=== PATIENT | male | born 1945 | race Caucasian/White ===

== ENCOUNTER → 2016-06-15 | Outpatient (CLI) | payer OTHER ==
--- NOTE | 2016-06-15 12:40 | NM ---
Nuclear Medicine Whole Body Bone Scan Indication: 70-year-old man with history of prostate adenocarcinoma. Increasing PSA. Possible metast asis to left acromion. Comparison: F-18 bone scan dated February 17, 2016 and whole body bone scan dated October 23, 2009. Technique: 21.3 mCi technetium 99m MDP were injected intravenously. Delayed images of the skeleton were obtained in anterior and posterior projections. Findings: Benign degenerative uptake in bilateral acromioclavicular joints. No scintigraphic evidence of bone metastasis to the left acromion. Small focus of increased uptake in the posterolateral right seventh rib, lateral left third rib, and anterior left fifth rib at the costochondral junction are all unchanged since February 2016. The left third rib uptake and left fifth costochondral uptake are new since October 2009. No new focus of abnormal uptake throughout the axial or appendicular skeleton since February 2016. Exp ected photopenia and minimal uptake around the right hip arthroplasty. Normal uptake throughout the g enitourinary tract. Impression: 1. Stable disease. Limited metastatic disease to the right 7th and left 3rd ribs and possibly left 5 th costochondral junction are unchanged since February 2016. 2. Doubt metastatic lesion in left acromion. Suspect this corresponds to degenerative uptake in the a cromioclavicular joint.
== END ==
LOC: FIMAGING 08:15
PROVIDERS: ATTEND Internal Medicine Hematology & Oncology
DX: C79.51 Secondary malignant neoplasm of bone (principal); C61 Malignant neoplasm of prostate
CPT/HCPCS: 78306; A9503

== ENCOUNTER → 2016-08-09 | Outpatient (CLI) | payer OTHER | LOC: FIMAGING 08:39 | DX: R97.20 Elevated prostate specific antigen [PSA] (principal); Z85.46 Personal history of malignant neoplasm of prostate; R93.8 Abnormal findings on diagnostic imaging of other specified body structures; Z90.79 Acquired absence of other genital organ(s) | CPT/HCPCS: 78306; A9503 ==